=== PATIENT | male | born 1955 | race Caucasian/White ===

== ENCOUNTER 2017-07-07 21:08 | Inpatient (IN) | payer OTHER ==
[~2017-07-07] VITALS: Ht 185.4 cm; Wt 132.1 kg
--- NOTE | ~2017-07-07 | CN ---
Consultation Report [facility] [address] [place]. [address] NAME: ALINE BACA : 53 STATUS : ADM Bernard PAT#: [id number] AGE: 62 ADM/REG DATE : 07/08/17 MR#: [id number] REPORT SERV DATE: 07/08/17 DICTATED BY: MITCHELL GUTIERREZ DATE: 07/08/17 REPORT STATUS : Draft TRANSCRIBED BY: MODL DATE: 07/08/17 CARDIOLOGY CONSULTATION DATE OF CONSULTATION: INDICATION: Atrial fibrillation, rapid ventricular response. HISTORY OF PRESENT ILLNESS: The patient is a 62-year-old white male with a history of paroxysmal atrial fibrillation. He was cardioverted in November of this year and has been in stable rhythm since that time. This past Thursday, he had had a bit of Cooper, got the liquid down his trachea, and had a fairly rigorous coughing paroxysm. At that point, he felt his heart go out of rhythm. Through the , he had increasing periods of chest pressure and some night sweats, and on that Thursday ended up urinating quite frequently. He presented to the emergency room in atrial fibrillation. His initial potassium was 2.9 and his white count was also elevated at 14,000. Cardiac enzymes thus far are normal. He currently is asymptomatic. HOME MEDICATIONS: Amlodipine 5 q.a.m., apixaban 5 b.i.d., clonidine 0.1 p.r.n., diltiazem 120 a day, escitalopram 40 q.a.m., hydrochlorothiazide 12.5 q.a.m., levothyroxine 200 per day, lisinopril 2.5, and metformin 1000. ALLERGIES OR INTOLERANCES: High doses of SCOOBY inhibitors promote worsening renal function. SOCIAL HISTORY: . 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 He is a former light smoker, has occasional alcoholic beverage. FAMILY HISTORY: Father of strokes; he had scarlet fever as a child. PAST MEDICAL HISTORY/REVIEW OF SYSTEMS: Positive for hypertension, diabetes, myocarditis or pericarditis in 2009, severe obstructive sleep apnea, degenerative disk disease, and LV systolic dysfunction with the last EF estimate in 12/2016 of 40%. PHYSICAL EXAMINATION: GENERAL: A 62-year-old white male, pleasant. VITAL SIGNS: Blood pressure 140/88, pulse 124 and irregular, and respirations 18. SKIN: No xanthelasmas. HEENT: Normocephalic. There is no pallor. Sclerae white. NECK: JVD is not elevated. CHEST: No crackles. CARDIAC: S1 variable, S2 singular. ABDOMEN: Soft. EXTREMITIES: Without edema. No clubbing. NEUROLOGIC: No focal deficits. Consultation Report [address] [place]. [address] NAME: ALINE BACA : 53 STATUS : ADM Bernard PAT#: [id number] AGE: 62 ADM/REG DATE : 07/08/17 MR#: [id number] REPORT SERV DATE: 07/08/17 DICTATED BY: MITCHELL GUTIERREZ DATE: 07/08/17 REPORT STATUS : Draft TRANSCRIBED BY: FRANSISCO DATE: 07/08/17 MUSCULOSKELETAL: No kyphosis. LABORATORY DATA: As mentioned, potassium 2.9, BUN 19, creatinine 1.34, white count 14, and TSH 1.06. Troponins negative. ECG shows atrial fibrillation with a ventricular response rate at 109 beats per minute. There is left anterior fascicular block with clockwise rotation and nonspecific ST-T wave changes. DISPOSITION: I had a long discussion about options outside of amiodarone. I would be concerned about the effects of antiarrhythmic drugs in the setting of LV dysfunction. He would like to try to maintain his current regimen. We will plan on cardioversion in the morning with further recommendations forthcoming. DREA/FRANSISCO Mitchell Gutierrez M.D. / [id number] CC: Sheldon Monge M.D.
--- NOTE | ~2017-07-07 | OP ---
Record Of Operation [facility] [address] [place]. [address] NAME: ALINE BACA : 53 STATUS : ADM Bernard PAT#: [id number] AGE: 62 ADM/REG DATE : 07/08/17 MR#: [id number] REPORT SERV DATE: 07/09/17 DICTATED BY: MITCHELL GUTIERREZ DATE: 07/09/17 REPORT STATUS : Draft TRANSCRIBED BY: MODL DATE: 07/09/17 DATE OF PROCEDURE: CARDIOVERSION. INDICATION: Atrial fibrillation, symptomatic. DESCRIPTION OF PROCEDURE: After obtaining written informed consent, the patient was transported to the cardiac short-stay unit. He was anesthetized via anesthesia. A 300 joules synchronized shock was delivered across the anterolateral patches. Sinus rhythm was restored. DREA/FRANSISCO Mitchell Gutierrez M.D. / [id number] CC: Sheldon Monge M.D. [facility]
--- NOTE | ~2017-07-07 | HP ---
History And Physical [id number] [place]. [address] NAME: ALINE LOCKETT : 53 STATUS : ADM Bernard PAT#: [id number] AGE: 62 ADM/REG DATE : 07/08/17 MR#: [id number] REPORT SERV DATE: 07/08/17 DICTATED BY: KEDAR FERRIS DATE: 07/08/17 REPORT STATUS : Draft TRANSCRIBED BY: MODL DATE: 07/08/17 DATE OF ADMISSION: 07/08/2017 CHIEF COMPLAINT: Left-sided chest pain . HISTORY OF PRESENT ILLNESS: This is a 62-year-old male with a history of paroxysmal atrial fibrillation, status post cardioversion by Dr. Gutierrez; history of myocarditis in the distant past; history of diabetes mellitus; hypothyroidism, who presents to the emergency room at [facility] with the above-mentioned complaint. History is obtained from the patient, his who is at bedside, and reviewing data available on the [employer] system. According to Mr. Lockett, he had been in his usual state of health until Thursday last week when he felt his heart was racing and was evaluated and he was in atrial fibrillation at that time. He was seen at Dr. Gutierrez's office and prescribed Cardizem orally. He is on Eliquis since December when he had another episode of such atrial fibrillation and he had to be cardioverted. Since then, he had been continued on Eliquis. However, since that time, he has started having left-sided chest pain, which is continuous without any aggravating or relieving factors and dull in nature. He states it feels like it is pain around his heart and is actually more when he takes a deep breath. He states he does not feel like there is any fluid around his chest, but the pain and the atrial fibrillation, they decided to come to the emergency room to be evaluated. In the emergency room, initial workup revealed he was indeed in atrial fibrillation with rapid ventricular response and he also had hypokalemia. He also had some leukocytosis along with the chest pain mentioned above, and Hospitalist Service is asked to admit him for further evaluation and treatment. At the time of my evaluation, he continued to have the left-sided chest pain. He had received a dose of Toradol in the emergency room, which has given him a lot of relief. He denied any orthopnea at this time. He had no cough, hemoptysis, night sweats, or weight loss. He has not had any recent falls or loss of consciousness. No history of fevers, chills, until he got here and he is currently feeling some chills. No history of nausea, vomiting, diarrhea, or dysuria. He has no history of hematemesis, hematochezia, or hematuria. No other history of recent travel or exposures other than those mentioned above. PAST MEDICAL HISTORY: Significant for history of myocarditis in the distant past, history of diabetes mellitus, hypothyroidism, hypertension, and has a history of venous thromboembolism as well. He also has sleep apnea, compliant with CPAP, and gout. SOCIAL HISTORY: He smokes a cigar or two per week and has alcohol at least three times a week and denied any recreational drug use. 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 FAMILY HISTORY: Noncontributory. History And Physical [address] [address] NAME: ALINE LOCKETT : 53 STATUS : ADM Bernard PAT#: [id number] AGE: 62 ADM/REG DATE : 07/08/17 MR#: [id number] REPORT SERV DATE: 07/08/17 DICTATED BY: KEDAR FERRIS DATE: 07/08/17 REPORT STATUS : Draft TRANSCRIBED BY: FRANSISCO DATE: 07/08/17 MEDICATIONS: At home were reviewed by me in the chart today and reordered by me. REVIEW OF SYSTEMS: As in history of present illness. All other systems were reviewed in detail and quite unremarkable. PHYSICAL EXAMINATION: GENERAL: This is a pleasant 62-year-old, not in any acute distress. HEENT: His head is atraumatic, normocephalic. He is alert, awake, oriented to time, place, and person. Pupils are equal, reacting to light and accommodating. External ocular muscles are intact. Membranes are moist and pink. Sclerae are nonicteric. NECK: Supple with no jugular venous distention or lymphadenopathy. HEART: Auscultation of his lungs revealed fair to moderate air entry bilaterally with no wheezes, rubs, or crackles. HEART: Heart sounds were irregularly irregular. ABDOMEN: Soft, nontender. Bowel sounds are present. EXTREMITIES: Showed no cyanosis, clubbing, or edema. NEURO: Grossly intact. No focal sensory or motor deficits. Higher functions appeared intact. Gait was not examined. VITAL SIGNS: His vital signs today showed a temperature of 99.1, pulse 124, respirations 22 a minute, blood pressure was 140/88, and oxygen saturations were 97% on room air. LABORATORY DATA: Reviewed on the [employer] system showed a sodium of 142, potassium 2.9, chloride 103, and CO2 was 30. BUN was 19 with a creatinine of 1.34 and glucose was 193. Troponin was 0.02. His white blood cell count was elevated at 14,000. Otherwise, normal hemoglobin, hematocrit, and platelet count. Urinalysis was not done today. Films of the chest x-ray were reviewed by me on the PACS today and interpreted by me. Today's films were compared to prior films available there as well. Per my interpretation, there is no acute lobar consolidations or pleural effusions seen. There is a volume loss on the right chest. A 12-lead EKG done in the emergency room was reviewed and interpreted by me. There is an atrial fibrillation with rapid ventricular response at a rate of 109. No acute ST changes seen. IMPRESSION: 1. Atrial fibrillation with rapid ventricular response. 2. Hypokalemia. 3. Chest pain, possible myocarditis or pericarditis. 4. Leukocytosis. 5. Diabetes mellitus type 2 with hyperglycemia. 6. Hypothyroidism, status post thyroidectomy. 7. Hypertension. 8. History of venous thromboembolism. 9. Obstructive sleep apnea. 10.Gout. PLAN: We will admit Mr. Lockett to the Hospitalist Service with cardiac telemetry for a 24-hour observation period. We will follow serial troponin levels to rule out acute coronary History And Physical [address] [address] NAME: ALINE LOCKETT : 53 STATUS : ADM Bernard PAT#: [id number] AGE: 62 ADM/REG DATE : 07/08/17 MR#: [id number] REPORT SERV DATE: 07/08/17 DICTATED BY: KEDAR FERRIS DATE: 07/08/17 REPORT STATUS : Draft TRANSCRIBED BY: MODL DATE: 07/08/17 syndrome. Meanwhile, continue Cardizem infusion that was started in the ER for rate control per protocol. We will replace his potassium and then check his electrolytes and chemistry in the morning as well. We will also get an echocardiogram in the morning to evaluate further. We will start him on blood sugar control with NovoLog given subcutaneously per sliding scale. Meanwhile, also get his blood cultures drawn. We will also check his TSH and continue replacement therapy for now. He is on Eliquis that we will be continuing. Further recommendations will follow after we get the results of the above tests. We will also be consulting Dr. Gutierrez, his saw edge fuser circular to see him in the morning. I have discussed the above plans with the patient and his , questions were answered, and they are agreeable to the above recommendations. Hospitalist Service will be following him during his stay here. /FRANSISCO Kedar Ferris M.D. / [id number] CC: Sheldon López M.D.
--- NOTE | ~2017-07-07 | DS ---
Discharge Summary [facility] [address] [facility] [place]. [address] NAME: ALINE BACA : 53 STATUS : DIS IN PAT#: [id number] AGE: 62 ADM/REG DATE : 07/08/17 MR#: [id number] REPORT SERV DATE: 07/15/17 DICTATED BY: IAN OWEN DATE: 07/14/17 REPORT STATUS : Draft TRANSCRIBED BY: MODL DATE: 07/14/17 ADMISSION DATE: 07/08/2017 DISCHARGE DATE: 07/14/2017 DISCHARGE DIAGNOSES: 1. Aspiration pneumonia. 2. Paroxysmal atrial fibrillation, symptomatic. 3. Development of torsade with Tikosyn initiation. 4. Cardiomyopathy, in part thought to be due to tachycardia-induced ejection fraction of 40%. 5. Type 2 diabetes. 6. Hypertension with persistent hypokalemia, question if there is a component of primary hyperaldosteronism. 7. Acute kidney injury, present on admission, improved. 8. Hypothyroidism. 9. History of deep vein thrombosis. 10.Sleep apnea. 11.Gout. 12.Current Eliquis, anticoagulation. Please note that this is an addendum to interim discharge summary that was dictated by Dr. Tani Hogan. The patient was already ready for discharge, but due to his borderline hypokalemia, the patient was simply monitored overnight with potassium replacement. The patient's potassium is now at 4 and thus he is being discharged home. There is nothing more to add to already excellent interim discharge summary dictated by Dr. Tani Hogan. The patient is to have a followup for outpatient ablation for the atrial fibrillation. The patient is also to have a followup BMP in one week. Also, the patient is being discharged home without an SCOOBY inhibitor, so he can be tested for primary hyperaldosteronism as an outpatient. A total of 35 minutes spent in coordinating this patient's discharge today. YSKatt/FRANSISCO Ian Owen MD / [id number] CC: MD George Harvey M.D.
--- NOTE | ~2017-07-07 | IDS ---
Interim Discharge Summary [facility] [address] [facility] [address] [place]. [address] NAME: ALINE BACA : 53 STATUS : ADM IN PAT#: [id number] AGE: 62 ADM/REG DATE : 07/08/17 MR#: [id number] REPORT SERV DATE: 07/14/17 DICTATED BY: MITCHELL HOGAN DATE: 07/13/17 REPORT STATUS : Draft TRANSCRIBED BY: MODL DATE: 07/13/17 ADMISSION DATE: 07/08/2017 DISCHARGE DATE: INTERIM SUMMARY COVERAGE PERIOD: 07/07/2017 to 07/13/2017. CURRENT DIAGNOSES: 1. Paroxysmal atrial fibrillation, symptomatic. 2. Torsade with Tikosyn initiation. 3. Cardiomyopathy, in part thought to be due to tachycardia induced with ejection fraction of 40%. 4. Aspiration pneumonia. 5. Type 2 diabetes. 6. Hypothyroid. 7. Acute kidney injury present on admission. 8. Hypertension. Question component of primary aldosteronism with hypokalemia and high urinary potassium. 9. History of venous thromboembolism. 10.Sleep apnea. 11.Gout. 12.Current Eliquis anticoagulation. OPERATIONS AND PROCEDURES: Cardioversion 07/09/2017, Dr. Gutierrez. PRESENT ILLNESS: This is a 62-year-old white male who was triaged in the emergency room on 07/07/2017 at 2126 hours complaining of chest pain. Admission vital signs, blood pressure 140/88, temp 99.1, pulse 124, respirations 22, and O2 saturation 94%. His EKG demonstrated atrial fibrillation with rapid ventricular response. He was referred to the Hospitalist Service for admission. He was seen by Dr. Kedar Bonds and admitted as described on admission history and physical examination. Additional history included a previous history of paroxysmal atrial fibrillation and cardioversion. He had also been having some left-sided chest pain. He had had a recent severe choking episode and later in his hospitalization described headaches, feverishness, sweating, and cough. ADDITIONAL HISTORY: Per Dr. Bonds. PHYSICAL EXAMINATION: Per Dr. Bonds. Interim Discharge Summary [facility] [address] [facility] [address] [place] [place]. [address] NAME: ALINE BACA : 53 STATUS : ADM IN PAT#: [id number] AGE: 62 ADM/REG DATE : 07/08/17 MR#: [id number] REPORT SERV DATE: 07/14/17 DICTATED BY: MITCHELL HOGAN DATE: 07/13/17 REPORT STATUS : Draft TRANSCRIBED BY: FRANSISCO DATE: 07/13/17 ADMISSION LABORATORY: Per Dr. Bonds. HOSPITAL COURSE: He was admitted with: 1. Atrial fibrillation with rapid ventricular response. 2. Hypokalemia. 3. Chest pain. 4. Leukocytosis all in the setting of the above-mentioned comorbidities. He was initially admitted to [address] [place] [address]. He was placed on a Cardizem drip. He was given potassium replacement. He was placed on correction insulin scale, and his home Eliquis was continued. Cardiology consultation was obtained with Dr. Gutierrez. His hospitalist care was assumed initially by the undersigned. An echocardiogram was performed which showed mildly dilated left ventricle with moderate global left ventricular systolic dysfunction with an EF of 40%. There was mild left ventricular diastolic dysfunction. There was normal right ventricular size and systolic function. When seen by Dr. Gutierrez, he noted that the patient has been cardioverted in November of this year. He had been in a stable rhythm. Thursday prior to this admission, he had a bit of bourbon, got the liquid down his trachea, and had a fairly vigorous coughing paroxysm. At that point, the patient felt his heart go out of rhythm. He noted that through the weekend, the patient had increasing periods of chest pressure and some night sweats in addition to polyuria. Dr. Gutierrez suggested direct cardioversion with improved rate control given his left ventricular dysfunction and concern for additional antiarrhythmic agents. On 07/09, he was cardioverted by Dr. Gutierrez. Sinus rhythm was restored, but he quickly went back into atrial fibrillation. Options were discussed. It was decided to move the patient to cardiac short stay and initiate Tikosyn. With the initiation of Tikosyn, he developed a prolonged QT interval followed by torsade. A code was called. Intensive Care Medicine, Dr. Tyler, and [facility] Cardiology attended. The patient never lost a pulse. He was given magnesium. He was given lidocaine. He required cardioversion. He returned to sinus rhythm. He was transferred to the ICU where he remained until the evening of 07/12 when he was transferred to [address] [place] [address]. Prior to transfer, he was started on IV amiodarone with plans for transitioning to p.o. amiodarone and subsequent ablation probably as an outpatient. Other issues during his hospitalization include persistent hypokalemia despite potassium replacement. Spot urinary electrolytes on the demonstrated a sodium of 90, potassium of Interim Discharge Summary [facility] [address] [place]. [address] NAME: ALINE BACA : 53 STATUS : ADM IN PAT#: [id number] AGE: 62 ADM/REG DATE : 07/08/17 MR#: [id number] REPORT SERV DATE: 07/14/17 DICTATED BY: MITCHELL HOGAN DATE: 07/13/17 REPORT STATUS : Draft TRANSCRIBED BY: MODL DATE: 07/13/17 72, chloride of 138, at which time, his potassium was 3.7. He has hypertension. He has taken Aldactone before but developed gynecomastia. He may have an element of hyperaldosteronism. Plasma aldosterone and plasma renin testing is not being performed since he is on SCOOBY inhibitor therapy. He is empirically being placed on eplerenone at this time. As noted on admission, he had leukocytosis with a white count of 14,000. A procalcitonin level was less than 0.05. However, a C-reactive protein level was 65.9. He had the above-mentioned sweats and pulmonary symptoms post his choking episode. A CT scan of his chest was done on 07/09 prior to his torsade episode. This demonstrated asymmetric perihilar infiltrates and interlobular septal thickening, more extensive on the right. Aspiration was suspected. He was started on Zosyn. His pulmonary symptoms have improved though he continues to have some sweats. A CRP had increased to 92.6 on the and today is 55.7. Current plan is to transition to p.o. amiodarone, attempt to achieve normokalemia with eplerenone and potassium replacement and continue antimicrobial therapy with plans for discharge and subsequent outpatient ablative therapy for his atrial fibrillation. Hospitalist care to be assumed by Magda Robles Team on 07/14/2017. DD/FRANSISCO Mitchell Hogan M.D. / [id number] CC: Sheldon Monge M.D.
--- NOTE | ~2017-07-07 | CN ---
Consultation Report [facility] [address] [place]. [address] NAME: ALINE BACA : 53 STATUS : ADM IN PAT#: [id number] AGE: 62 ADM/REG DATE : 07/08/17 MR#: [id number] REPORT SERV DATE: 07/10/17 DICTATED BY: DOM TYLER DATE: 07/10/17 REPORT STATUS : Draft TRANSCRIBED BY: MODBenedict DATE: 07/10/17 DATE OF CONSULTATION: HISTORY OF PRESENT ILLNESS: A 62-year-old white male, who had to come to bedside emergently in short stay after a code blue was called. I arrived at bedside and patient had torsades, ventricular tachycardia. The patient never lost a pulse, and he was awake during the entire event. He was down there and started on Tikosyn. He was originally admitted on the because of chest pain and having atrial fibrillation with rapid ventricular response. EKG showed prolonged QT. Shortly after I arrived, he went into the torsades arrhythmia again. Cardiology also showed up shortly after I arrived. We gave him magnesium of the least 3 g, possibly 4 g. We also gave him a lidocaine push. He did get shocked at 300 joules initially when he went to the torsades, and he looked diaphoretic and having active chest pain at that time and went back into sinus rhythm. He kept going in and out of torsades, which is why we are giving magnesium and lidocaine. I did give him a 2.5 mg of IV Versed x2 doses to help with comfort and as a mild sedative and anxiolytic. We started a low-dose Precedex as well at 0.2 mcg/kg per hour. He was feeling much better symptomatically. His sat never dropped below 90%, and we put him on a high liter per minute of nasal cannula oxygen and switched him over to a Ventimask. Of note, the patient does have severe obstructive sleep apnea, which we did keep in mind. REVIEW OF SYSTEMS: Not able to assess. PAST MEDICAL HISTORY: Obstructive sleep apnea, history of myocarditis in the past, type 2 diabetes, morbid obesity, hypothyroidism, atrial fibrillation with history of cardioversion, hypertension, history of venous thrombosis embolism, gout. SOCIAL HISTORY: Smokes cigars on occasion and drinks alcohol a few times per week. No illicit drugs. FAMILY HISTORY: Noncontributory. PHYSICAL EXAMINATION: VITAL SIGNS: Per nursing flow sheet. He is currently in CCU bed 2. GENERAL: He is looking calm, comfortable on the BiPAP that we switched him over to for respiratory support for the time being. NEURO: He has spontaneous eye opening and moves all extremities and able to sustain some conversation. HEENT: Normocephalic and atraumatic. Pupils are equal. NECK: Trachea midline. HEART: Currently in sinus rhythm. CHEST: Normal. LUNGS: Clear to auscultation bilaterally. No wheezes, rales, or rubs. GI: Soft, nontender, nondistended. EXTREMITIES: No edema. Consultation Report [facility] [address] [facility] [place]. [address] NAME: ALINE BACA : 53 STATUS : ADM IN PAT#: [id number] AGE: 62 ADM/REG DATE : 07/08/17 MR#: [id number] REPORT SERV DATE: 07/10/17 DICTATED BY: DOM TYLER DATE: 07/10/17 REPORT STATUS : Draft TRANSCRIBED BY: FRANSISCO DATE: 07/10/17 SKIN: Intact. : No [place] present. LABORATORY DATA: Labs and radiology studies reviewed. ASSESSMENT AND PLAN: 1. Torsade ventricular tachycardia. 2. Atrial fibrillation with rapid ventricular response. 3. Obstructive sleep apnea. 4. Type 2 diabetes. 5. Mild leukocytosis without evidence of infection at this point. The patient is in CCU bed 2, on BiPAP for respiratory support but should be able to wean this off pretty quickly as soon as the Versed wears off, on a low-dose Precedex but may be able to stop this as well. He is currently in sinus rhythm. We will likely have to stop the Tikosyn but we will defer this to Cardiology. We will temporarily order a lidocaine drip until Cardiology can come evaluate the patient. We will provide supportive respiratory care for the time being. He is currently on a sliding scale of insulin with glucose checks for his diabetes. CEP/MODL Dom Tyler DO / [id number] CC: Tani Hogan M.D.
[~2017-07-07 21:08] MED LIST: ARIMIDEX1 PO; ELIQUIS 5 MG TAB5 MG PO; GLUCOPHAGE1000 MG PO; GLUCPH PO; HCTZ12.5 PO; IND25 PO; KLOR-CON M2020 MEQ PO; LEVOTHYROXIN200 MCG PO; LEXAPRO20 PO; NORV5 PO; PRIN2.5 PO; TRESIBA FL100 UNIT/1 SC
[2017-07-07 22:13] LABS: BASOPHILS 0.4 %; BASOPHILS ABSOLUTE 0.05 10/3/uL (0.0-0.16); EOSINOPHILS 1.9 %; EOSINOPHILS ABSOLUTE 0.26 10/3/uL (0.0-0.53); HEMOGLOBIN 16.3 g/dL (13.6-17.8); IMMATURE GRANULOCYTES 0.6 %; IMMATURE GRANULOCYTES ABSOLUTE 0.08 10/3/uL (0.0-0.11); LYMPHOCYTES 23.7 %; LYMPHOCYTES ABSOLUTE 3.32 10/3/uL (0.67-4.30); MEAN CORPUS HGB CONC 34.7 g/dL (32.0-36.0); MEAN CORPUSCULAR HEMOGLOB 31.6 pg (26.0-34.0); MEAN CORPUSCULAR VOLUME 91.1 fL (80-100); MEAN PLATELET VOLUME 11.1 fL (9.2-13.0); MONOCYTES 9.3 %; NEUTROPHILS 64.1 %; NEUTROPHILS ABSOLUTE 9.01 10/3/uL (2.02-8.40); PLATELET COUNT 285 10/3/uL (150-400); RBC DISTRIBUTION WIDTH 14.2 % (12.0-16.0); RED CELL COUNT 5.16 10/6/uL (4.7-6.1)
[2017-07-07 22:14] LABS: MANUAL DIFF NO %
[2017-07-07 22:19] LABS: INTERNATIONAL NORMAL RATI 1.1 UNITS (-); PROTIME (NOT ORD) 14.1 SEC (12.0-14.5)
[2017-07-07 22:20] LABS: PARTIAL THROMBO TIME 29.7 SEC (22.5-37.2)
[2017-07-07 22:30] LABS: BUN (BLOOD UREA NITROGEN) 19 MG/DL (6-23); CALCIUM, SERUM 9.2 MG/DL (8.5-10.4); CHEST PAIN PROFILE TAT 0 Hrs 21 Mins; CHLORIDE, SERUM 103 MMOL/L (96-112); CO2 (CARBON DIOXIDE) 30 MMOL/L (24-34); CREATININE 1.34 MG/DL (0.70-1.30); GFR AFRICAN AMERICAN 65 ML/MIN (>=60); GFR NON AFRICAN AMERICAN 56 ML/MIN (>=60); SODIUM, SERUM 142 MMOL/L (135-148); TROPONIN I <0.02 NG/ML (<0.05)
[2017-07-07 22:31] LABS: GLUCOSE, SERUM 193 MG/DL (60-99); POTASSIUM, SERUM 2.9 MMOL/L (3.5-5.3)
[2017-07-07] MEDS ORDERED: CARDCD120 PO (23:12)
[2017-07-07] MEDS ORDERED: CAT1 PO (23:13)
[2017-07-08 03:16] LABS: PHOSPHORUS, SERUM 2.5 MG/DL (2.5-4.5)
[2017-07-08 03:22] LABS: ULTRASENSITIVE TSH 1.06 MCIU/ML (0.358-3.740)
[2017-07-08 10:04] LABS: BASOPHILS 0.2 %; BASOPHILS ABSOLUTE 0.03 10/3/uL (0.0-0.16); EOSINOPHILS 0.9 %; EOSINOPHILS ABSOLUTE 0.11 10/3/uL (0.0-0.53); HEMATOCRIT 42.7 % (40.0-51.0); HEMOGLOBIN 14.9 g/dL (13.6-17.8); IMMATURE GRANULOCYTES 0.5 %; IMMATURE GRANULOCYTES ABSOLUTE 0.07 10/3/uL (0.0-0.11); LYMPHOCYTES 22.7 %; MEAN CORPUS HGB CONC 34.9 g/dL (32.0-36.0); MEAN CORPUSCULAR HEMOGLOB 31.8 pg (26.0-34.0); MEAN CORPUSCULAR VOLUME 91.2 fL (80-100); MEAN PLATELET VOLUME 10.9 fL (9.2-13.0); MONOCYTES 15.1 %; MONOCYTES ABSOLUTE 1.93 10/3/uL (0.21-1.20); NEUTROPHILS 60.6 %; NEUTROPHILS ABSOLUTE 7.74 10/3/uL (2.02-8.40); PLATELET COUNT 237 10/3/uL (150-400); RBC DISTRIBUTION WIDTH 14.4 % (12.0-16.0); RED CELL COUNT 4.68 10/6/uL (4.7-6.1); WHITE BLOOD CELLS 12.8 10/3/uL (4.5-10.5)
[2017-07-08 10:14] LABS: BUN (BLOOD UREA NITROGEN) 18 MG/DL (6-23); CALCIUM, SERUM 8.5 MG/DL (8.5-10.4); CHLORIDE, SERUM 106 MMOL/L (96-112); CO2 (CARBON DIOXIDE) 28 MMOL/L (24-34); GFR AFRICAN AMERICAN 74 ML/MIN (>=60); GFR NON AFRICAN AMERICAN 64 ML/MIN (>=60); GLUCOSE, SERUM 157 MG/DL (60-99); POTASSIUM, SERUM 3.1 MMOL/L (3.5-5.3); SODIUM, SERUM 141 MMOL/L (135-148)
[2017-07-08 10:19] LABS: MANUAL DIFF NO %
[2017-07-08 11:40] LABS: PROCALCITONIN <0.05 ng/mL (<0.5)
[2017-07-08 13:15] LABS: POTASSIUM, SERUM 3.7 MMOL/L (3.5-5.3); TROPONIN I <0.02 NG/ML (<0.05)
[2017-07-08 19:37] LABS: ALBUMIN 3.3 G/DL (3.5-5.0); ALKALINE PHOSPHATASE 51 U/L (45-117); C-REACTIVE PROTEIN 65.9 MG/L (<8.0); DIRECT BILIRUBIN 0.2 MG/DL (0.0-0.4); INDIRECT BILIRUBIN(NOT ORDER) 0.5 MG/DL (0.1-0.9); SGOT(AST) 17 U/L (5-40); SGPT(ALT) 25 U/L (5-65); TOTAL PROTEIN 7.2 G/DL (6.0-8.5)
[2017-07-08 19:42] LABS: TOTAL BILIRUBIN 0.7 MG/DL (0-1.2)
[2017-07-09 04:15] LABS: BASOPHILS 0.4 %; BASOPHILS ABSOLUTE 0.04 10/3/uL (0.0-0.16); EOSINOPHILS 2.1 %; EOSINOPHILS ABSOLUTE 0.24 10/3/uL (0.0-0.53); HEMATOCRIT 43.8 % (40.0-51.0); IMMATURE GRANULOCYTES 0.4 %; IMMATURE GRANULOCYTES ABSOLUTE 0.05 10/3/uL (0.0-0.11); LYMPHOCYTES 24.7 %; LYMPHOCYTES ABSOLUTE 2.77 10/3/uL (0.67-4.30); MANUAL DIFF NO %; MEAN CORPUS HGB CONC 34.2 g/dL (32.0-36.0); MEAN CORPUSCULAR HEMOGLOB 31.3 pg (26.0-34.0); MEAN CORPUSCULAR VOLUME 91.4 fL (80-100); MONOCYTES ABSOLUTE 1.34 10/3/uL (0.21-1.20); NEUTROPHILS 60.4 %; NEUTROPHILS ABSOLUTE 6.77 10/3/uL (2.02-8.40); PLATELET COUNT 249 10/3/uL (150-400); RBC DISTRIBUTION WIDTH 14.5 % (12.0-16.0); RED CELL COUNT 4.79 10/6/uL (4.7-6.1); WHITE BLOOD CELLS 11.2 10/3/uL (4.5-10.5)
[2017-07-09 04:18] LABS: INTERNATIONAL NORMAL RATI 1.4 UNITS (-); PROTIME (NOT ORD) 16.8 SEC (12.0-14.5)
[2017-07-09 04:35] LABS: BUN (BLOOD UREA NITROGEN) 15 MG/DL (6-23); CALCIUM, SERUM 8.3 MG/DL (8.5-10.4); CHLORIDE, SERUM 104 MMOL/L (96-112); CO2 (CARBON DIOXIDE) 28 MMOL/L (24-34); CREATININE 1.04 MG/DL (0.70-1.30); GFR AFRICAN AMERICAN 88 ML/MIN (>=60); GFR NON AFRICAN AMERICAN 76 ML/MIN (>=60); GLUCOSE, SERUM 149 MG/DL (60-99); SODIUM, SERUM 139 MMOL/L (135-148); TROPONIN I <0.02 NG/ML (<0.05)
[2017-07-10 04:26] LABS: BUN (BLOOD UREA NITROGEN) 18 MG/DL (6-23); C-REACTIVE PROTEIN 92.6 MG/L (<8.0); CALCIUM, SERUM 8.5 MG/DL (8.5-10.4); CHLORIDE, SERUM 107 MMOL/L (96-112); CO2 (CARBON DIOXIDE) 26 MMOL/L (24-34); GFR AFRICAN AMERICAN 67 ML/MIN (>=60); GFR NON AFRICAN AMERICAN 58 ML/MIN (>=60); GLUCOSE, SERUM 170 MG/DL (60-99); POTASSIUM, SERUM 3.7 MMOL/L (3.5-5.3); SODIUM, SERUM 140 MMOL/L (135-148)
[2017-07-10 06:07] LABS: BASOPHILS 0.2 %; BASOPHILS ABSOLUTE 0.04 10/3/uL (0.0-0.16); EOSINOPHILS 0.3 %; EOSINOPHILS ABSOLUTE 0.05 10/3/uL (0.0-0.53); HEMATOCRIT 45.7 % (40.0-51.0); HEMOGLOBIN 15.6 g/dL (13.6-17.8); IMMATURE GRANULOCYTES 0.6 %; IMMATURE GRANULOCYTES ABSOLUTE 0.09 10/3/uL (0.0-0.11); LYMPHOCYTES 17.4 %; LYMPHOCYTES ABSOLUTE 2.83 10/3/uL (0.67-4.30); MEAN CORPUS HGB CONC 34.1 g/dL (32.0-36.0); MEAN CORPUSCULAR HEMOGLOB 31.5 pg (26.0-34.0); MEAN CORPUSCULAR VOLUME 92.3 fL (80-100); MEAN PLATELET VOLUME 11.2 fL (9.2-13.0); MONOCYTES 10.6 %; MONOCYTES ABSOLUTE 1.72 10/3/uL (0.21-1.20); NEUTROPHILS 70.9 %; NEUTROPHILS ABSOLUTE 11.51 10/3/uL (2.02-8.40); PLATELET COUNT 273 10/3/uL (150-400); RBC DISTRIBUTION WIDTH 14.6 % (12.0-16.0); RED CELL COUNT 4.95 10/6/uL (4.7-6.1)
[2017-07-10 06:09] LABS: MANUAL DIFF NO %; WHITE BLOOD CELLS 16.2 10/3/uL (4.5-10.5)
[2017-07-10 23:35] LABS: PROCALCITONIN 0.06 ng/mL (<0.5)
[2017-07-11 04:41] LABS: BUN (BLOOD UREA NITROGEN) 18 MG/DL (6-23); CALCIUM, SERUM 8.4 MG/DL (8.5-10.4); CHLORIDE, SERUM 102 MMOL/L (96-112); CO2 (CARBON DIOXIDE) 26 MMOL/L (24-34); CREATININE 1.23 MG/DL (0.70-1.30); GFR AFRICAN AMERICAN 72 ML/MIN (>=60); GFR NON AFRICAN AMERICAN 62 ML/MIN (>=60); GLUCOSE, SERUM 170 MG/DL (60-99); POTASSIUM, SERUM 3.8 MMOL/L (3.5-5.3); SODIUM, SERUM 136 MMOL/L (135-148)
[2017-07-11 07:01] LABS: BASOPHILS 0.1 %; BASOPHILS ABSOLUTE 0.02 10/3/uL (0.0-0.16); EOSINOPHILS 0.2 %; EOSINOPHILS ABSOLUTE 0.03 10/3/uL (0.0-0.53); HEMOGLOBIN 14.7 g/dL (13.6-17.8); IMMATURE GRANULOCYTES 0.4 %; IMMATURE GRANULOCYTES ABSOLUTE 0.07 10/3/uL (0.0-0.11); LYMPHOCYTES 10.8 %; LYMPHOCYTES ABSOLUTE 1.78 10/3/uL (0.67-4.30); MEAN CORPUS HGB CONC 33.4 g/dL (32.0-36.0); MEAN CORPUSCULAR HEMOGLOB 31.5 pg (26.0-34.0); MEAN CORPUSCULAR VOLUME 94.2 fL (80-100); MEAN PLATELET VOLUME 11.4 fL (9.2-13.0); MONOCYTES 9.7 %; MONOCYTES ABSOLUTE 1.59 10/3/uL (0.21-1.20); NEUTROPHILS 78.8 %; NEUTROPHILS ABSOLUTE 12.93 10/3/uL (2.02-8.40); PLATELET COUNT 257 10/3/uL (150-400); RBC DISTRIBUTION WIDTH 14.6 % (12.0-16.0); RED CELL COUNT 4.67 10/6/uL (4.7-6.1); WHITE BLOOD CELLS 16.4 10/3/uL (4.5-10.5)
[2017-07-11 07:04] LABS: MANUAL DIFF NO %
[2017-07-12 03:37] LABS: BASOPHILS 0.2 %; BASOPHILS ABSOLUTE 0.02 10/3/uL (0.0-0.16); EOSINOPHILS 3.8 %; EOSINOPHILS ABSOLUTE 0.33 10/3/uL (0.0-0.53); HEMATOCRIT 39.9 % (40.0-51.0); HEMOGLOBIN 13.4 g/dL (13.6-17.8); IMMATURE GRANULOCYTES 0.5 %; IMMATURE GRANULOCYTES ABSOLUTE 0.04 10/3/uL (0.0-0.11); LYMPHOCYTES 26.6 %; LYMPHOCYTES ABSOLUTE 2.31 10/3/uL (0.67-4.30); MEAN CORPUS HGB CONC 33.6 g/dL (32.0-36.0); MEAN CORPUSCULAR HEMOGLOB 31.2 pg (26.0-34.0); MEAN PLATELET VOLUME 10.6 fL (9.2-13.0); MONOCYTES 11.9 %; MONOCYTES ABSOLUTE 1.03 10/3/uL (0.21-1.20); NEUTROPHILS ABSOLUTE 4.94 10/3/uL (2.02-8.40); PLATELET COUNT 255 10/3/uL (150-400); RBC DISTRIBUTION WIDTH 14.1 % (12.0-16.0); RED CELL COUNT 4.29 10/6/uL (4.7-6.1)
[2017-07-12 03:38] LABS: MANUAL DIFF NO %; WHITE BLOOD CELLS 8.7 10/3/uL (4.5-10.5)
[2017-07-12 03:51] LABS: CALCIUM, SERUM 8.1 MG/DL (8.5-10.4); CHLORIDE, SERUM 108 MMOL/L (96-112); CO2 (CARBON DIOXIDE) 25 MMOL/L (24-34); GFR AFRICAN AMERICAN 74 ML/MIN (>=60); GFR NON AFRICAN AMERICAN 64 ML/MIN (>=60); POTASSIUM, SERUM 3.9 MMOL/L (3.5-5.3); SODIUM, SERUM 140 MMOL/L (135-148)
[2017-07-12 03:53] LABS: BUN (BLOOD UREA NITROGEN) 22 MG/DL (6-23); GLUCOSE, SERUM 131 MG/DL (60-99)
[2017-07-13 04:49] LABS: BASOPHILS 0.6 %; BASOPHILS ABSOLUTE 0.05 10/3/uL (0.0-0.16); EOSINOPHILS 4.3 %; EOSINOPHILS ABSOLUTE 0.39 10/3/uL (0.0-0.53); HEMATOCRIT 44.1 % (40.0-51.0); HEMOGLOBIN 14.8 g/dL (13.6-17.8); IMMATURE GRANULOCYTES 0.7 %; IMMATURE GRANULOCYTES ABSOLUTE 0.06 10/3/uL (0.0-0.11); LYMPHOCYTES 31.3 %; LYMPHOCYTES ABSOLUTE 2.82 10/3/uL (0.67-4.30); MANUAL DIFF NO %; MEAN CORPUS HGB CONC 33.6 g/dL (32.0-36.0); MEAN CORPUSCULAR HEMOGLOB 30.8 pg (26.0-34.0); MEAN CORPUSCULAR VOLUME 91.7 fL (80-100); MEAN PLATELET VOLUME 10.7 fL (9.2-13.0); MONOCYTES 9.7 %; MONOCYTES ABSOLUTE 0.87 10/3/uL (0.21-1.20); NEUTROPHILS 53.4 %; NEUTROPHILS ABSOLUTE 4.82 10/3/uL (2.02-8.40); PLATELET COUNT 288 10/3/uL (150-400); RED CELL COUNT 4.81 10/6/uL (4.7-6.1)
[2017-07-13 04:55] LABS: BUN (BLOOD UREA NITROGEN) 17 MG/DL (6-23); CALCIUM, SERUM 8.5 MG/DL (8.5-10.4); CHLORIDE, SERUM 107 MMOL/L (96-112); CO2 (CARBON DIOXIDE) 23 MMOL/L (24-34); GFR AFRICAN AMERICAN 92 ML/MIN (>=60); GFR NON AFRICAN AMERICAN 80 ML/MIN (>=60); GLUCOSE, SERUM 140 MG/DL (60-99); POTASSIUM, SERUM 3.4 MMOL/L (3.5-5.3); SODIUM, SERUM 139 MMOL/L (135-148)
[2017-07-13 04:56] LABS: PHOSPHORUS, SERUM 3.4 MG/DL (2.5-4.5)
[2017-07-13 13:10] LABS: C-REACTIVE PROTEIN 55.7 MG/L (<8.0)
[2017-07-14 05:36] LABS: BUN (BLOOD UREA NITROGEN) 19 MG/DL (6-23); CALCIUM, SERUM 8.6 MG/DL (8.5-10.4); CHLORIDE, SERUM 109 MMOL/L (96-112); CO2 (CARBON DIOXIDE) 21 MMOL/L (24-34); CREATININE 1.26 MG/DL (0.70-1.30); GFR AFRICAN AMERICAN 70 ML/MIN (>=60); GFR NON AFRICAN AMERICAN 60 ML/MIN (>=60); GLUCOSE, SERUM 159 MG/DL (60-99); POTASSIUM, SERUM 3.7 MMOL/L (3.5-5.3); SODIUM, SERUM 142 MMOL/L (135-148)
[2017-07-14] MEDS ORDERED: INSPRA50 MG PO (16:07)
[2017-07-14] MEDS ORDERED: LOP100 PO (16:09)
[2017-07-14] MEDS ORDERED: KDUR10 (16:11)
== END 2017-07-14 17:23 | disposition home or self-care (01) | DRG 308 ==
LOC: ENRESERV → ENRESERVTM → ENRESERVDT → ER 21:08 → 2SO 07-08 00:15 → 6NO 07-08 00:15 → SSU1 07-08 00:15 → ENPENDDIS 07-08 00:15 → CCU 07-08 00:15 → ER/OF 07-08 00:15 → 2SO 07-08 07:23 → SSU1 07-09 16:55 → CCU 07-10 10:16 → 6NO 07-12 13:05
PROVIDERS: Internal Medicine; Internal Medicine Clinical Cardiac Electrophysiology; Internal Medicine Pulmonary Disease; Nurse Practitioner Family; Specialist
PROC: 5A2204Z Restoration of Cardiac Rhythm, Single (ICD-10-PCS; principal; 2017-07-09)
DX: I48.0 Paroxysmal atrial fibrillation (principal); J69.0 Pneumonitis due to inhalation of food and vomit; I47.2 Ventricular tachycardia; N17.9 Acute kidney failure, unspecified; E11.65 Type 2 diabetes mellitus with hyperglycemia; E66.01 Morbid (severe) obesity due to excess calories; I42.9 Cardiomyopathy, unspecified; I10 Essential (primary) hypertension; G47.33 Obstructive sleep apnea (adult) (pediatric); E87.6 Hypokalemia; E26.9 Hyperaldosteronism, unspecified; T46.2X5A Adverse effect of other antidysrhythmic drugs, initial encounter; M10.9 Gout, unspecified; F17.290 Nicotine dependence, other tobacco product, uncomplicated; I44.4 Left anterior fascicular block; E89.0 Postprocedural hypothyroidism; E86.0 Dehydration; Z86.718 Personal history of other venous thrombosis and embolism; Z79.02 Long term (current) use of antithrombotics/antiplatelets; Z68.38 Body mass index [BMI] 38.0-38.9, adult
CPT/HCPCS: 71010; 71250; 74230; 80048; 80076; 82436; 82570; 82962; 83036; 83735; 83935; 84100; 84132; 84133; 84145; 84300; 84443; 84484; 85025; 85610; 85730; 86140; 87040; 87070; 87205; 92611-GN; 92950; 92960; 93005; 93306; 93308; 94660; 96365; 96375; 96376; 99291; A9270-GY; J0282; J1885; J2250; J2543; J3475